=== PATIENT | male | born 1940 | race Two or more races ===

== ENCOUNTER 2024-06-13 04:10 | Inpatient (IN) | payer MEDICARE, BC ==
[~2024-06-13] VITALS: Ht 170.2 cm; Wt 84.8 kg
[2024-06-13 04:46] LABS: BASOPHILS % (AUTO) 0.6 % (0.0-2.0); EOSINOPHILS # (AUTO) 0.5 K/uL (0.0-0.7); HEMATOCRIT 38 % (39-51); HEMOGLOBIN 12.5 g/dL (13.5-17.5); LYMPHOCYTES # (AUTO) 0.7 K/uL (0.8-4.8); LYMPHOCYTES % (AUTO) 8.7 % (20.0-44.0); MEAN CORPUSCULAR HEMOGLOBIN 31 PG (26.0-33.0); MEAN CORPUSCULAR HGB CONC 33 g/dl (31.0-36.0); MEAN CORPUSCULAR VOLUME 93 fL (80-96); MONOCYTES # (AUTO) 0.9 K/uL (0.1-1.30); MONOCYTES % (AUTO) 11.8 % (2.0-12.0); NEUTROPHILS # (AUTO) 5.4 K/uL (1.8-8.9); NEUTROPHILS % (AUTO) 71.9 % (43.0-81.0); PLATELET COUNT (AUTO) 211 K/uL (150-450); RED BLOOD CELL COUNT(AUTO) 4.05 MIL/uL (4.5-6.0); RED CELL DISTRIBUTION WIDTH 13.7 % (11.5-15.0); WHITE BLOOD COUNT (AUTO) 7.6 K/uL (4.3-11.0)
[2024-06-13 05:07] LABS: ALANINE AMINOTRANSFERASE 13 U/L (12-78); ALBUMIN 2.6 g/dL (3.4-5.0); ALKALINE PHOSPHATASE 136 U/L (46-116); ASPARTATE AMINOTRANSFERASE 37 U/L (15-37); BILIRUBIN,TOTAL 0.9 mg/dL (0.2-1.0); CALCIUM, SERUM 8.9 mg/dL (8.5-10.1); CARBON DIOXIDE 23 mmol/L (21-32); CHLORIDE 98 mmol/L (98-107); CREATININE 1.3 mg/dL (0.6-1.3); GLUCOSE 134 mg/dL (74-106); NT-PRO BNP 3170 pg/mL (0-125); SODIUM SERUM 133 mmol/L (136-145); TOTAL PROTEIN, SERUM 6.7 g/dL (6.4-8.2); UREA NITROGEN, BLOOD 29 mg/dL (7-18)
[2024-06-13 05:14] LABS: ABG BASE EXCESS -1.9 mmol/L (-2.0-3.0); ABG OXYGEN SATURATION 96.6 % (94.0-98.0); ABG PCO2 29.9 mmHg (35.0-48.0); ABG PH 7.463 (7.350-7.450); ABG PO2 92.5 mmHg (83.0-108.0); ABG TOTAL HEMOGLOBIN 12.6 G/dL (13.5-17.5); COHb 0.3 % (0.5-1.5); MetHb 0.4 % (0.0-1.5); O2Hb 95.9 % (94.0-97.0); SITE, ABG Right Radial; VENT MODE, BG 10L NRB
[2024-06-13] MEDS ORDERED: MAG HYDROX/AL HYDROX/SIMETH 30 ML UDC PO PRN (05:30)
[2024-06-13] MEDS ORDERED: ONDANSETRON HCL/PF 4 MG/2 ML VIAL IVP PRN (05:30)
[2024-06-13] MEDS ORDERED: Z GUARD REMEDY 4 OZ OINT TP PRN (05:30)
[2024-06-13] MEDS: NITROGLYCERIN 0.4 MG/TAB BOTTLE SL ONE (05:30)
[2024-06-13] MEDS ORDERED: FUROSEMIDE 40 MG/4 ML VIAL ONE (05:36)
[2024-06-13] MEDS: FUROSEMIDE 40 MG/4 ML VIAL IV ONE (05:37)
[2024-06-13 06:52] VITALS: BP 101/87; TEMP 96.9; O2SAT 99
[2024-06-13 08:00] VITALS: BP 133/81; TEMP 98.6; O2SAT 99
[2024-06-13] MEDS: FUROSEMIDE 40 MG/4 ML VIAL IV SCH ×2 (08:47→16:26)
[2024-06-13] MEDS: PANTOPRAZOLE 40 MG VIAL IV SCH (08:47)
[2024-06-13] MEDS: ENOXAPARIN SODIUM 40 MG/0.4 ML DISP.SYRIN SQ SCH (08:48)
[2024-06-13 12:00] VITALS: BP 110/72; TEMP 98.4; O2SAT 99
[2024-06-13 16:00] VITALS: BP 108/95; TEMP 98.3; O2SAT 95
[2024-06-13 20:00] VITALS: BP 157/93; TEMP 98.6; O2SAT 94
[2024-06-13 22:00] VITALS: O2SAT 97
[2024-06-13] MEDS ORDERED: TAMS-12 PO (23:13)
[2024-06-13] MEDS ORDERED: ATOR80TA PO (23:14)
[2024-06-13] MEDS ORDERED: ONDA4TAB5 PO (23:17)
[2024-06-13] MEDS ORDERED: LORA-259 PO (23:17)
[2024-06-13] MEDS ORDERED: OXYC10TA49 PO (23:20)
[2024-06-13] MEDS ORDERED: LOSA100T31 PO (23:21)
[2024-06-13] MEDS ORDERED: DULO30CA2 PO (23:23)
[2024-06-13] MEDS ORDERED: SILD50TA PO (23:24)
[2024-06-13] MEDS ORDERED: BUSP5TAB3 PO (23:25)
[2024-06-13] MEDS ORDERED: CARV6.252 PO (23:26)
[2024-06-14] VITALS (7 sets, daily range): BP systolic 113–168; BP diastolic 83–103; TEMP 98.2–99.7; O2SAT 93–100
[2024-06-14] MEDS ORDERED: KETOROLAC TROMETHAMINE INJ 30 MG/ML VIAL IM ONE (00:30)
[2024-06-14] MEDS: KETOROLAC TROMETHAMINE INJ 30 MG/ML VIAL IV ONE (02:39)
[2024-06-14] MEDS ORDERED: LORAZEPAM 1 MG TABLET PO PRN (06:00)
[2024-06-14 06:40] LABS: BASOPHILS % (AUTO) 0.6 % (0.0-2.0); EOSINOPHILS # (AUTO) 0.6 K/uL (0.0-0.7); EOSINOPHILS % (AUTO) 9.7 % (0.0-6.0); HEMATOCRIT 36 % (39-51); HEMOGLOBIN 12.5 g/dL (13.5-17.5); LYMPHOCYTES # (AUTO) 0.7 K/uL (0.8-4.8); LYMPHOCYTES % (AUTO) 10.5 % (20.0-44.0); MEAN CORPUSCULAR HEMOGLOBIN 31 PG (26.0-33.0); MEAN CORPUSCULAR HGB CONC 34 g/dl (31.0-36.0); MEAN CORPUSCULAR VOLUME 91 fL (80-96); MONOCYTES # (AUTO) 0.7 K/uL (0.1-1.30); MONOCYTES % (AUTO) 11.6 % (2.0-12.0); NEUTROPHILS # (AUTO) 4.2 K/uL (1.8-8.9); NEUTROPHILS % (AUTO) 67.6 % (43.0-81.0); PLATELET COUNT (AUTO) 236 K/uL (150-450); RED BLOOD CELL COUNT(AUTO) 3.99 MIL/uL (4.5-6.0); RED CELL DISTRIBUTION WIDTH 13.8 % (11.5-15.0); WHITE BLOOD COUNT (AUTO) 6.3 K/uL (4.3-11.0)
[2024-06-14 07:00] LABS: CALCIUM, SERUM 9.1 mg/dL (8.5-10.1); CARBON DIOXIDE 27 mmol/L (21-32); CHLORIDE 98 mmol/L (98-107); CREATININE 1.1 mg/dL (0.6-1.3); GLUCOSE 133 mg/dL (74-106); MAGNESIUM 1.6 mg/dL (1.8-2.4); PHOSPHORUS 4.5 mg/dL (2.5-4.9); POTASSIUM 4.1 mmol/L (3.5-5.1); SODIUM SERUM 137 mmol/L (136-145); UREA NITROGEN, BLOOD 31 mg/dL (7-18)
[2024-06-14 07:53] LABS: NT-PRO BNP 1028 pg/mL (0-125)
[2024-06-14] MEDS: busPIRone 5 MG TABLET PO SCH (08:05)
[2024-06-14] MEDS: TAMSULOSIN 0.4 MG CAP.SR.24H PO SCH (08:05)
[2024-06-14] MEDS: LOSARTAN POTASSIUM 50 MG TABLET PO SCH (08:06)
[2024-06-14] MEDS: CARVEDILOL 6.25 MG TABLET PO SCH (08:06)
[2024-06-14] MEDS ORDERED: PANTOPRAZOLE 40 MG TABLET.DR PO SCH (09:00)
[2024-06-14] MEDS: FUROSEMIDE 100 MG/10 ML VIAL IV SCH (10:03)
[2024-06-14] MEDS: ASPIRIN 81 MG TAB.CHEW PO SCH (10:04)
[2024-06-14] MEDS: hydrALAZINE HCL 50 MG TABLET PO SCH (10:04)
[2024-06-14 10:17] LABS: THYROID STIMULATING HORMONE 0.55 uIU/mL (0.358-3.74)
[2024-06-14] MEDS: MAGNESIUM OXIDE 400 MG TABLET PO ONE (12:40)
[2024-06-14 19:10] LABS: ABG BASE EXCESS 5.6 mmol/L (-2.0-3.0); ABG OXYGEN SATURATION 99.7 % (94.0-98.0); ABG PCO2 34.7 mmHg (35.0-48.0); ABG PH 7.527 (7.350-7.450); ABG PO2 425.7 mmHg (83.0-108.0); AaDO2 252.6 mmHg; COHb 0.7 % (0.5-1.5); MetHb 0.3 % (0.0-1.5); O2Hb 98.7 % (94.0-97.0); SITE, ABG Right Radial; VENT MODE, BG NRB 100
[2024-06-14] MEDS: FUROSEMIDE 40 MG/4 ML VIAL IV STA (19:44)
[2024-06-14] MEDS: ATORVASTATIN 40 MG TABLET PO SCH (21:28)
[2024-06-14] MEDS: MAGNESIUM HYDROXIDE 30 ML UDC PO PRN (22:25)
[2024-06-15] VITALS (8 sets, daily range): BP systolic 96–154; BP diastolic 64–97; TEMP 97.3–98.7; O2SAT 94–99
[2024-06-15 08:36] LABS: BASOPHILS % (AUTO) 0.6 % (0.0-2.0); EOSINOPHILS # (AUTO) 0.4 K/uL (0.0-0.7); EOSINOPHILS % (AUTO) 5.9 % (0.0-6.0); HEMATOCRIT 39 % (39-51); HEMOGLOBIN 12.9 g/dL (13.5-17.5); LYMPHOCYTES # (AUTO) 0.6 K/uL (0.8-4.8); LYMPHOCYTES % (AUTO) 10.5 % (20.0-44.0); MEAN CORPUSCULAR HEMOGLOBIN 31 PG (26.0-33.0); MEAN CORPUSCULAR HGB CONC 34 g/dl (31.0-36.0); MEAN CORPUSCULAR VOLUME 91 fL (80-96); MONOCYTES # (AUTO) 0.8 K/uL (0.1-1.30); MONOCYTES % (AUTO) 14.1 % (2.0-12.0); NEUTROPHILS # (AUTO) 4.1 K/uL (1.8-8.9); NEUTROPHILS % (AUTO) 68.9 % (43.0-81.0); PLATELET COUNT (AUTO) 270 K/uL (150-450); RED BLOOD CELL COUNT(AUTO) 4.24 MIL/uL (4.5-6.0); RED CELL DISTRIBUTION WIDTH 14.1 % (11.5-15.0); WHITE BLOOD COUNT (AUTO) 5.9 K/uL (4.3-11.0)
[2024-06-15 08:58] LABS: ALANINE AMINOTRANSFERASE 18 U/L (12-78); ALBUMIN 2.5 g/dL (3.4-5.0); ALKALINE PHOSPHATASE 134 U/L (46-116); ASPARTATE AMINOTRANSFERASE 37 U/L (15-37); BILIRUBIN,TOTAL 0.9 mg/dL (0.2-1.0); CALCIUM, SERUM 9.1 mg/dL (8.5-10.1); CARBON DIOXIDE 29 mmol/L (21-32); CHLORIDE 96 mmol/L (98-107); CREATININE 0.9 mg/dL (0.6-1.3); GLUCOSE 140 mg/dL (74-106); MAGNESIUM 1.9 mg/dL (1.8-2.4); PHOSPHORUS 4.3 mg/dL (2.5-4.9); POTASSIUM 3.8 mmol/L (3.5-5.1); SODIUM SERUM 132 mmol/L (136-145); TOTAL PROTEIN, SERUM 7.1 g/dL (6.4-8.2); UREA NITROGEN, BLOOD 33 mg/dL (7-18)
[2024-06-15] MEDS ORDERED: FUROSEMIDE 20 MG/2 ML VIAL IV SCH (09:00)
[2024-06-15] MEDS: FUROSEMIDE 100 MG/10 ML VIAL IV SCH (09:15)
[2024-06-15] MEDS: hydrALAZINE HCL 50 MG TABLET PO SCH (09:37)
[2024-06-15] MEDS: POTASSIUM CHLORIDE 20 MEQ TAB.PRT.SR PO SCH (09:37)
[2024-06-15] MEDS: PANTOPRAZOLE 40 MG TABLET.DR PO SCH (09:38)
[2024-06-15] MEDS: NA PHOS,M-B/NA PHOS,DI-BA 1 EA ENEMA RC PRN (11:55)
[2024-06-15 14:07] LABS: *SPE A/G RATIO 0.7 (0.7-1.7); *SPE ALBUMIN 2.6 g/dL (2.9-4.4); *SPE ALPHA-1-GLOBULIN 0.4 g/dL (0.0-0.4); *SPE ALPHA-2-GLOBULIN 1.2 g/dL (0.4-1.0); *SPE GLOBULIN, TOTAL 3.5 g/dL (2.2-3.9); *SPE M-SPIKE Not Observed g/dL (Not Observed); *SPE PROTEIN TOTAL 6.1 g/dL (6.0-8.5); *SPEGAMMA GLOBULIN 0.9 g/dL (0.4-1.8)
[2024-06-15] MEDS: ACETAMINOPHEN 325 MG TABLET PO PRN (19:43)
[2024-06-16] VITALS: BP 115/85; TEMP 98.4; O2SAT 97
[2024-06-16 04:00] VITALS: BP 131/84; TEMP 97.9; O2SAT 95
[2024-06-16 08:00] VITALS: BP 119/80; TEMP 98.6; O2SAT 97
[2024-06-16] MEDS ORDERED: BUMETANIDE INJ 6 MG in IV D5W 36 ML IV ONE (08:30)
[2024-06-16] MEDS: BUMETANIDE INJ 6 MG in IV NS 0.9% 36 ML IV ONE (08:53)
[2024-06-16 09:05] LABS: ALANINE AMINOTRANSFERASE 20 U/L (12-78); ALKALINE PHOSPHATASE 132 U/L (46-116); ASPARTATE AMINOTRANSFERASE 31 U/L (15-37); CALCIUM, SERUM 9.3 mg/dL (8.5-10.1); CARBON DIOXIDE 28 mmol/L (21-32); CHLORIDE 96 mmol/L (98-107); CREATININE 1.1 mg/dL (0.6-1.3); GLUCOSE 123 mg/dL (74-106); MAGNESIUM 2.1 mg/dL (1.8-2.4); PHOSPHORUS 4.2 mg/dL (2.5-4.9); SODIUM SERUM 134 mmol/L (136-145); TOTAL PROTEIN, SERUM 7.2 g/dL (6.4-8.2); UREA NITROGEN, BLOOD 40 mg/dL (7-18)
[2024-06-16] MEDS: LEVOFLOXACIN 750 MG /D5W 150ML 150 ML IV SCH (09:21)
[2024-06-16] MEDS: methylPREDNISolone SOD SUCC 125 MG/2ML VIAL IV SCH (09:22)
[2024-06-16 10:10] LABS: ALBUMIN 2.5 g/dL (3.4-5.0)
[2024-06-16 12:00] VITALS: BP 117/76; TEMP 97.7; O2SAT 97
[2024-06-16 13:44] LABS: BASOPHILS % (AUTO) 0.3 % (0.0-2.0); EOSINOPHILS # (AUTO) 0.1 K/uL (0.0-0.7); EOSINOPHILS % (AUTO) 1.8 % (0.0-6.0); HEMATOCRIT 43 % (39-51); LYMPHOCYTES # (AUTO) 0.3 K/uL (0.8-4.8); LYMPHOCYTES % (AUTO) 5.1 % (20.0-44.0); MEAN CORPUSCULAR HEMOGLOBIN 30 PG (26.0-33.0); MEAN CORPUSCULAR HGB CONC 33 g/dl (31.0-36.0); MEAN CORPUSCULAR VOLUME 92 fL (80-96); MONOCYTES # (AUTO) 0.4 K/uL (0.1-1.30); MONOCYTES % (AUTO) 5.9 % (2.0-12.0); NEUTROPHILS # (AUTO) 5.7 K/uL (1.8-8.9); NEUTROPHILS % (AUTO) 86.9 % (43.0-81.0); PLATELET COUNT (AUTO) 311 K/uL (150-450); RED BLOOD CELL COUNT(AUTO) 4.64 MIL/uL (4.5-6.0); RED CELL DISTRIBUTION WIDTH 13.9 % (11.5-15.0); WHITE BLOOD COUNT (AUTO) 6.6 K/uL (4.3-11.0)
[2024-06-16] MEDS: DULOXETINE HCL 30 MG CAPSULE.DR PO SCH (17:22)
[2024-06-16 20:00] VITALS: BP 120/68; TEMP 97.7; O2SAT 97
[2024-06-17] VITALS: BP 132/73; TEMP 98.6; O2SAT 95
[2024-06-17 04:00] VITALS: BP 146/93; TEMP 99; O2SAT 95
[2024-06-17 08:00] VITALS: BP 142/88; TEMP 97.6; O2SAT 95
[2024-06-17 09:50] LABS: BASOPHILS % (AUTO) 0.1 % (0.0-2.0); HEMATOCRIT 42 % (39-51); HEMOGLOBIN 14.1 g/dL (13.5-17.5); LYMPHOCYTES # (AUTO) 0.7 K/uL (0.8-4.8); LYMPHOCYTES % (AUTO) 7.4 % (20.0-44.0); MEAN CORPUSCULAR HEMOGLOBIN 31 PG (26.0-33.0); MEAN CORPUSCULAR HGB CONC 33 g/dl (31.0-36.0); MEAN CORPUSCULAR VOLUME 91 fL (80-96); MONOCYTES # (AUTO) 1.2 K/uL (0.1-1.30); MONOCYTES % (AUTO) 12.8 % (2.0-12.0); NEUTROPHILS # (AUTO) 7.5 K/uL (1.8-8.9); NEUTROPHILS % (AUTO) 79.7 % (43.0-81.0); PLATELET COUNT (AUTO) 381 K/uL (150-450); RED BLOOD CELL COUNT(AUTO) 4.64 MIL/uL (4.5-6.0); RED CELL DISTRIBUTION WIDTH 13.6 % (11.5-15.0); WHITE BLOOD COUNT (AUTO) 9.4 K/uL (4.3-11.0)
[2024-06-17 10:03] LABS: CALCIUM, SERUM 9.2 mg/dL (8.5-10.1); CARBON DIOXIDE 27 mmol/L (21-32); CHLORIDE 96 mmol/L (98-107); CREATININE 1.1 mg/dL (0.6-1.3); GLUCOSE 157 mg/dL (74-106); MAGNESIUM 1.8 mg/dL (1.8-2.4); SODIUM SERUM 134 mmol/L (136-145); UREA NITROGEN, BLOOD 48 mg/dL (7-18)
[2024-06-17 12:00] VITALS: BP 123/68; TEMP 97.5; O2SAT 98
[2024-06-17 16:00] VITALS: BP 131/79; TEMP 98.1; O2SAT 95
[2024-06-17 20:00] VITALS: BP 123/71; TEMP 98.1; O2SAT 95
[2024-06-18] VITALS: BP 127/67; TEMP 97.5; O2SAT 97
[2024-06-18 04:00] VITALS: BP 146/84; TEMP 98.4; O2SAT 96
[2024-06-18 08:00] VITALS: BP 157/66; TEMP 98.2; O2SAT 97
[2024-06-18 11:15] LABS: BASOPHILS % (AUTO) 0.1 % (0.0-2.0); HEMATOCRIT 40 % (39-51); HEMOGLOBIN 13.3 g/dL (13.5-17.5); LYMPHOCYTES # (AUTO) 0.4 K/uL (0.8-4.8); LYMPHOCYTES % (AUTO) 4.4 % (20.0-44.0); MEAN CORPUSCULAR HEMOGLOBIN 31 PG (26.0-33.0); MEAN CORPUSCULAR HGB CONC 34 g/dl (31.0-36.0); MEAN CORPUSCULAR VOLUME 91 fL (80-96); MONOCYTES % (AUTO) 9.8 % (2.0-12.0); NEUTROPHILS # (AUTO) 8.7 K/uL (1.8-8.9); NEUTROPHILS % (AUTO) 85.7 % (43.0-81.0); PLATELET COUNT (AUTO) 406 K/uL (150-450); RED BLOOD CELL COUNT(AUTO) 4.34 MIL/uL (4.5-6.0); RED CELL DISTRIBUTION WIDTH 13.7 % (11.5-15.0); WHITE BLOOD COUNT (AUTO) 10.2 K/uL (4.3-11.0)
[2024-06-18 11:41] LABS: CALCIUM, SERUM 9.4 mg/dL (8.5-10.1); CARBON DIOXIDE 27 mmol/L (21-32); CHLORIDE 93 mmol/L (98-107); CREATININE 1.2 mg/dL (0.6-1.3); GLUCOSE 174 mg/dL (74-106); POTASSIUM 3.8 mmol/L (3.5-5.1); SODIUM SERUM 129 mmol/L (136-145); UREA NITROGEN, BLOOD 50 mg/dL (7-18)
[2024-06-18 12:00] VITALS: BP 129/96; TEMP 98.1; O2SAT 98
[2024-06-18] MEDS: oxyCODONE IR immediate release 5 MG TABLET PO PRN (12:21)
[2024-06-18 16:00] VITALS: BP 129/72; TEMP 97.2; O2SAT 97
[2024-06-18] MEDS: GLUCERNA SHAKE 237 ML CAN PO SCH (17:39)
[2024-06-18 20:00] VITALS: BP 151/77; TEMP 99; O2SAT 97
[2024-06-19] VITALS: BP 147/68; TEMP 98.9; O2SAT 97
[2024-06-19 04:00] VITALS: BP 147/90; TEMP 98.5; O2SAT 97
[2024-06-19 06:38] LABS: HEMATOCRIT 42 % (39-51); LYMPHOCYTES # (AUTO) 0.5 K/uL (0.8-4.8); LYMPHOCYTES % (AUTO) 5.5 % (20.0-44.0); MEAN CORPUSCULAR HEMOGLOBIN 31 PG (26.0-33.0); MEAN CORPUSCULAR HGB CONC 34 g/dl (31.0-36.0); MEAN CORPUSCULAR VOLUME 91 fL (80-96); MONOCYTES # (AUTO) 1.1 K/uL (0.1-1.30); NEUTROPHILS # (AUTO) 7.7 K/uL (1.8-8.9); NEUTROPHILS % (AUTO) 82.5 % (43.0-81.0); PLATELET COUNT (AUTO) 450 K/uL (150-450); RED BLOOD CELL COUNT(AUTO) 4.58 MIL/uL (4.5-6.0); RED CELL DISTRIBUTION WIDTH 13.5 % (11.5-15.0); WHITE BLOOD COUNT (AUTO) 9.3 K/uL (4.3-11.0)
[2024-06-19 06:51] LABS: CALCIUM, SERUM 9.4 mg/dL (8.5-10.1); CARBON DIOXIDE 27 mmol/L (21-32); CHLORIDE 94 mmol/L (98-107); CREATININE 1.2 mg/dL (0.6-1.3); GLUCOSE 172 mg/dL (74-106); SODIUM SERUM 130 mmol/L (136-145); UREA NITROGEN, BLOOD 55 mg/dL (7-18)
[2024-06-19 08:00] VITALS: BP 141/89; TEMP 97.5; O2SAT 97
[2024-06-19] MEDS: LEVOFLOXACIN (250MG) 250 MG TABLET PO SCH (10:19)
[2024-06-19 16:00] VITALS: BP 142/84; TEMP 97.9
[2024-06-19 20:00] VITALS: BP 133/79; TEMP 97.3
[2024-06-20] VITALS (10 sets, daily range): BP systolic 120–153; BP diastolic 82–91; TEMP 97.3–97.8; O2SAT 86–98
[2024-06-20 06:49] LABS: HEMATOCRIT 42 % (39-51); HEMOGLOBIN 14.1 g/dL (13.5-17.5); LYMPHOCYTES # (AUTO) 0.5 K/uL (0.8-4.8); MEAN CORPUSCULAR HEMOGLOBIN 30 PG (26.0-33.0); MEAN CORPUSCULAR HGB CONC 34 g/dl (31.0-36.0); MEAN CORPUSCULAR VOLUME 90 fL (80-96); MONOCYTES # (AUTO) 0.8 K/uL (0.1-1.30); MONOCYTES % (AUTO) 10.1 % (2.0-12.0); NEUTROPHILS # (AUTO) 6.8 K/uL (1.8-8.9); NEUTROPHILS % (AUTO) 83.9 % (43.0-81.0); PLATELET COUNT (AUTO) 468 K/uL (150-450); RED BLOOD CELL COUNT(AUTO) 4.64 MIL/uL (4.5-6.0); RED CELL DISTRIBUTION WIDTH 13.4 % (11.5-15.0); WHITE BLOOD COUNT (AUTO) 8.1 K/uL (4.3-11.0)
[2024-06-20 07:11] LABS: CALCIUM, SERUM 9.3 mg/dL (8.5-10.1); CARBON DIOXIDE 24 mmol/L (21-32); CHLORIDE 94 mmol/L (98-107); CREATININE 1.1 mg/dL (0.6-1.3); GLUCOSE 197 mg/dL (74-106); POTASSIUM 4.1 mmol/L (3.5-5.1); SODIUM SERUM 131 mmol/L (136-145); UREA NITROGEN, BLOOD 53 mg/dL (7-18)
[2024-06-20] MEDS: FUROSEMIDE 20 MG TABLET PO SCH (08:18)
[2024-06-20] MEDS ORDERED: PRED20TA PO ×2 (10:23→16:00)
[2024-06-20] MEDS ORDERED: LEVO250T59 PO (10:23)
[2024-06-20] MEDS ORDERED: FURO20TA4 PO (10:23)
[2024-06-20] MEDS ORDERED: LEVO500T90 PO (16:00)
[2024-06-20 21:09] LABS: *MYCOPLASMA PNEUMONIAE IgG 270 U/mL (0-99); *MYCOPLASMA PNEUMONIAE IgM <770 U/mL (0-769); LEGIONELLA PNEUMOPHILIA AB Non Reactive (Non Reactive)
== END 2024-06-20 20:08 | DRG 291 ==
LOC: ER 04:12 → TELE 05:36 → TELE1 05:48 → TELE-TD 06:06 → TELE1 06-14 11:55
PROVIDERS: ATTEND Internal Medicine
DX: I13.0 Hypertensive heart and chronic kidney disease with heart failure and stage 1 through stage 4 chronic kidney disease, or unspecified chronic kidney disease (principal); I50.33 Acute on chronic diastolic (congestive) heart failure; J15.9 Unspecified bacterial pneumonia; J96.01 Acute respiratory failure with hypoxia; J12.9 Viral pneumonia, unspecified; E44.0 Moderate protein-calorie malnutrition; N17.9 Acute kidney failure, unspecified; I69.351 Hemiplegia and hemiparesis following cerebral infarction affecting right dominant side; E87.1 Hypo-osmolality and hyponatremia; N18.9 Chronic kidney disease, unspecified; Z20.822 Contact with and (suspected) exposure to COVID-19; Z79.899 Other long term (current) drug therapy; Z99.3 Dependence on wheelchair; D64.9 Anemia, unspecified; E88.09 Other disorders of plasma-protein metabolism, not elsewhere classified; F39 Unspecified mood [affective] disorder; I27.20 Pulmonary hypertension, unspecified
CPT/HCPCS: 36415; 36600; 71045-TC; 71250-TC; 74246-TC; 80048-TC; 80053-TC; 80061-TC; 82728-TC; 82803-TC; 83540-TC; 83735-TC; 83880; 84100-TC; 84155; 84165; 84439-TC; 84443-TC; 84484-TC; 85025-TC; 86713; 86738; 92526; 92611-TC; 93307-TC; 93970-TC; 94762-TC; 94799-TC; 97112-TC; 97530-TC; 97535-TC; A4223; G0378; J1650; J1885; J1940; J1956; J2470; J2919; J3490; J7050; J7060